=== PATIENT | female | born 1990 | race Caucasian/White ===

== ENCOUNTER → 2023-12-11 12:34 | Outpatient (REF) | payer OTHER, SELFPAY | LOC: RAD 12:34 | PROVIDERS: ATTENDING PHYSICIAN Physician Assistant | DX: M25.531 Pain in right wrist (principal) | CPT/HCPCS: 73110 ==

== ENCOUNTER → 2025-03-12 16:11 | Outpatient (REF) | payer OTHER, SELFPAY | LOC: RAD 16:11 | PROVIDERS: ATTENDING PHYSICIAN Family Medicine; FAMILY PHYSICIAN Physician Assistant | DX: M25.562 Pain in left knee (principal); M25.561 Pain in right knee | CPT/HCPCS: 73562; 73565 ==

== ENCOUNTER → 2025-04-05 10:51 | Outpatient (REF) | payer OTHER, SELFPAY | LOC: MRI 3T 10:51 | PROVIDERS: ATTENDING PHYSICIAN Family Medicine; FAMILY PHYSICIAN Physician Assistant | DX: M17.12 Unilateral primary osteoarthritis, left knee (principal); M23.8X2 Other internal derangements of left knee; M25.562 Pain in left knee; M25.561 Pain in right knee | CPT/HCPCS: 73721 ==